=== PATIENT | male | born 1945 | race Caucasian/White ===

== ENCOUNTER 2023-11-11 18:23 | Emergency (ER) | payer SELFPAY ==
[~2023-11-11] VITALS: Ht 165.1 cm; Wt 78.0 kg
[2023-11-11 18:30] VITALS: BP 170/100; PULSE 94; RESP 16; O2SAT 98
[2023-11-11 19:15] VITALS: TEMP 98.5
[2023-11-11] MEDS ORDERED: ACETAMINOPHEN 325MG TABLET PO ONE (19:15)
[2023-11-11] MEDS ORDERED: TETANUS, DIPHTHERIA, PERTUSSIS VAC/PF 0.5ML (>10YR OLD) IM ONE (19:15)
== END 2023-11-11 20:37 | disposition home or self-care (01) ==
LOC: ER 18:23
DX: M25.511 Pain in right shoulder (principal); M25.512 Pain in left shoulder; M25.521 Pain in right elbow; M25.522 Pain in left elbow; E11.9 Type 2 diabetes mellitus without complications; V49.49XA Driver injured in collision with other motor vehicles in traffic accident, initial encounter; Y93.89 Activity, other specified; Y92.89 Other specified places as the place of occurrence of the external cause; Y99.8 Other external cause status
CPT/HCPCS: 73030; 73080; 90715; 90471; 99284; Z7610